=== PATIENT | female | born 1970 | race Caucasian/White ===

== ENCOUNTER 2017-06-01 13:42 | Emergency (ER) | payer OTHER ==
[2017-06-01] MEDS ORDERED: SILVER NITRATE STICK APPL ONE (14:12)
[2017-06-01] MEDS ORDERED: ADACEL TDaP IM ONE ×2 (14:52→14:59)
--- NOTE | 2017-06-01 14:54 | DR.LACERAT ---
HPI - Time Seen Time seen: 12:35 - Complaints Chief Complaint Doctors Comments: Patient presents with complaint of laceration to the 3rd digit of left hand just prior to arrival. There is active bleeding of the finger. The incidence was accidental. Tetanus immunization is delayed ROS - Review of Systems Eyes: No Symptoms Reported ENTM: No Symptoms Reported Respiratoy: No Symptoms Reported Cardiovascular: No Symptoms Reported Gastrointestinal/Abdominal: No Symptoms Reported Genitourinary: No Symptoms Reported Neurological: No Symptoms Reported Musculoskeletal: No Symptoms Reported Integumentary: See HPI, Other (cut 3rd digit of left hand) Hematologic/Lymphatic: No Symptoms Reported Endocrine: No Symptoms Reported Psychiatric: No Symptoms Reported All Other Systems: Reviewed and Negative PE - General General Appearance: Alert, In No Apparent Distress - Head Head Exam: Normal Inspection, Atraumatic - Eyes Eye exam: Normal Appearance, PERRL, EOMI - ENT ENT Exam: Normal Exam - Neck Neck Exam: Normal Inspection, Full ROM - Chest Chest Inspection: Normal Inspection - Respiratory Respiratory Exam: Normal Lung Sounds Bilat Respiratory Exam: Bilateral Clear to Auscultation - Cardiovascular Cardiovascular Exam: Regular Rate, Normal Rhythm - Abdominal Exam Abdominal Exam: Normal Inspection, Normal Bowel Sounds Abdominal Tenderness: negative: RUQ, RLQ, LUQ, LLQ, Epigastrium, Suprapubic, Diffuse, Mild, Moderate, Severe, Other - Extremities Extremities Exam: Normal Inspection, Full ROM, Other (laceration to the 3rd digit of left hand) - Back Back Exam: Normal Inspection - Neurologic Neurological Exam: Alert, Oriented X3, CN II-XII Intact - Psychiatric Psychiatric Exam: Normal Affect - Skin Skin Exam: Warm, Dry, Intact Type of Lesion: Rash, Abscess Distribution: Generalized Description: Size Procedures - Laceration/Wound Repair Left Hand Wound Length (cm): 3 Wound's Depth, Shape: Irregular Wound Explored: no foreign body removed Betadine Prep?: Yes Anesthesia: 1% Lidocaine (dorsal nerve block 10cc) Wound Repaired With: sutures Suture Size/Type: 5:0, Prolene Number of Sutures: 7 Layer Closure?: No - Diagnosis Discharge Problem: Finger laceration Qualifiers: Encounter type: initial encounter Finger: ring finger Damage to nail status: with damage Foreign body presence: without foreign body Laterality: left Qualified Code(s): S61.315A - Laceration without foreign body of left ring finger with damage to nail, initial encounter - Discharge Plan Condition: Stable - Follow ups/Referrals Follow ups/Referrals: Babatunde E[facility] [Primary Care Provider] - 3 days - Instructions
[2017-06-01 15:08] VITALS: BP 129/65; BMI 33.4
== END 2017-06-01 15:13 | disposition home or self-care (01) ==
LOC: ER 14:03
PROC: 0XQK0ZZ Repair Left Hand, Open Approach (ICD-10-PCS; principal; 2017-06-01)
DX: S61.315A Laceration without foreign body of left ring finger with damage to nail, initial encounter (principal); W45.8XXA Other foreign body or object entering through skin, initial encounter; Y92.9 Unspecified place or not applicable
CPT/HCPCS: 12002; 29130; 90471; 99282